=== PATIENT | male | born 1935 | race Caucasian/White ===

== ENCOUNTER 2016-08-03 08:35 | Emergency (ER) | payer OTHER, MEDICARE ==
[2016-08-03 09:11] VITALS: RESP 18
[2016-08-03 09:26] VITALS: TEMP 97.8
[2016-08-03 10:50] VITALS: BP 140/68; PULSE 60; O2SAT 96
== END 2016-08-03 10:40 | disposition home or self-care (01) | DRG 563 ==
LOC: ED 08:35
DX: S52.022B Displaced fracture of olecranon process without intraarticular extension of left ulna, initial encounter for open fracture type I or II (principal); S51.012A Laceration without foreign body of left elbow, initial encounter; W18.39XA Other fall on same level, initial encounter
CPT/HCPCS: 12002; 29105; 70450; 73070; 99285; G0168

== ENCOUNTER 2016-08-14 09:24 | Outpatient (CLI) | payer OTHER, MEDICARE ==
[2016-08-03 10:50] VITALS: O2SAT 96
== END 2016-08-14 09:25 | disposition home or self-care (01) | DRG 561 ==
LOC: CONVCARE 09:24
PROVIDERS: ATTEND Orthopaedic Surgery
DX: S52.025D Nondisplaced fracture of olecranon process without intraarticular extension of left ulna, subsequent encounter for closed fracture with routine healing (principal)
CPT/HCPCS: 73070

== ENCOUNTER 2016-08-28 08:48 | Outpatient (CLI) | payer OTHER, MEDICARE ==
[2016-08-03 10:50] VITALS: O2SAT 96
== END 2016-08-28 08:49 | disposition home or self-care (01) | DRG 561 ==
LOC: CONVCARE 08:48
PROVIDERS: ATTEND Orthopaedic Surgery
DX: S52.025D Nondisplaced fracture of olecranon process without intraarticular extension of left ulna, subsequent encounter for closed fracture with routine healing (principal)
CPT/HCPCS: 73070

== ENCOUNTER 2016-09-04 10:00 | Outpatient (CLI) | payer OTHER, MEDICARE ==
[2016-08-03 10:50] VITALS: O2SAT 96
== END 2016-09-04 10:01 | disposition home or self-care (01) | DRG 561 ==
LOC: CONVCARE 10:00
PROVIDERS: ATTEND Orthopaedic Surgery
DX: S52.035D Nondisplaced fracture of olecranon process with intraarticular extension of left ulna, subsequent encounter for closed fracture with routine healing (principal)
CPT/HCPCS: 73070

== ENCOUNTER 2016-09-18 11:16 | Outpatient (CLI) | payer OTHER, MEDICARE ==
[2016-08-03 10:50] VITALS: O2SAT 96
== END 2016-09-18 11:17 | disposition home or self-care (01) | DRG 561 ==
LOC: CONVCARE 11:16
PROVIDERS: ATTEND Orthopaedic Surgery
DX: S52.025D Nondisplaced fracture of olecranon process without intraarticular extension of left ulna, subsequent encounter for closed fracture with routine healing (principal)
CPT/HCPCS: 73070

== ENCOUNTER 2016-10-23 09:47 | Outpatient (CLI) | payer MEDICARE, OTHER ==
[2016-08-03 10:50] VITALS: O2SAT 96
== END 2016-10-23 09:48 | disposition home or self-care (01) | DRG 561 ==
LOC: CONVCARE 09:47
PROVIDERS: ATTEND Orthopaedic Surgery
DX: S52.035D Nondisplaced fracture of olecranon process with intraarticular extension of left ulna, subsequent encounter for closed fracture with routine healing (principal)
CPT/HCPCS: 73070

== ENCOUNTER 2016-12-04 11:38 | Outpatient (CLI) | payer MEDICARE, OTHER ==
[2016-08-03 10:50] VITALS: O2SAT 96
== END 2016-12-04 11:39 | disposition home or self-care (01) | DRG 556 ==
LOC: CONVCARE 11:38
PROVIDERS: ATTEND Orthopaedic Surgery
DX: M25.572 Pain in left ankle and joints of left foot (principal)
CPT/HCPCS: 73610

== ENCOUNTER 2017-04-26 07:58 | Emergency (ER) | payer MEDICARE, OTHER ==
[2017-04-26 08:14] VITALS: TEMP 96.9
[2017-04-26 08:24] LABS: BASOPHILS % (AUTO) 1 % (0-3); EOSINOPHILS % (AUTO) 1 % (0-9); HEMATOCRIT 36 % (39-53); MEAN CORPUSCULAR HGB CONC 35.2 gm/dl (32.0-36.0); MEAN CORPUSCULAR VOLUME 95 fL (80-100); MONOCYTES % (AUTO) 9.9 % (0-12); NEUTROPHILS % (AUTO) 68.8 % (37-80)
[2017-04-26 08:38] LABS: CALCIUM 8.9 mg/dl (8.5-10.1); GLOM FILT RATE 36 mL/min (>60); POTASSIUM 5.2 mMol/L (3.5-5.1); SODIUM 137 mMol/L (136-145)
[2017-04-26] MEDS ORDERED: SODIUM CHLORIDE 0.9% 500 ML SOL IV SCH (09:15)
[2017-04-26 11:50] VITALS: PULSE 69
[2017-04-26 11:52] VITALS: BP 91/62; RESP 20; O2SAT 94
== END 2017-04-26 11:40 | disposition home or self-care (01) | DRG 293 ==
LOC: ED 07:58
DX: I50.41 Acute combined systolic (congestive) and diastolic (congestive) heart failure (principal)
CPT/HCPCS: 36415; 71010; 80048; 83880; 84484; 85025; 93005; 96365; 96366; 99284

== ENCOUNTER 2017-04-27 12:29 | Emergency (ER) | payer MEDICARE, OTHER ==
[2017-04-27 12:44] VITALS: RESP 20; TEMP 98.3
[2017-04-27 13:02] VITALS: O2SAT 97
[2017-04-27 15:31] VITALS: BP 95/59; PULSE 71
== END 2017-04-27 18:15 | DRG 293 ==
LOC: ED 12:29
DX: I50.41 Acute combined systolic (congestive) and diastolic (congestive) heart failure (principal)
CPT/HCPCS: 99282; 99284